=== PATIENT | female | born 1950 | race Native Hawaiian/Other Pacific Islander ===

== ENCOUNTER → 2023-09-26 | Outpatient (CLI) | payer MEDICARE, OTHER ==
[~2023-09-26] MED LIST: AMLO2.5T29 PO; ASPI-1444 PO; ATOR-2 PO; CARV12.530 PO; CLOP75TA60 PO; DULA4.5P SQ; EMPA25TA3 PO; FLUT16SP NASAL; INSLAN SQ; IOHEXOL 350 MG/ML 75 ML VIAL ONE; SODIUM CHLORIDE 0.9% 100 ML ONE
== END | disposition home or self-care (01) ==
LOC: RADMN 08:34
PROVIDERS: ATTEND Internal Medicine
DX: R91.8 Other nonspecific abnormal finding of lung field (principal); M47.814 Spondylosis without myelopathy or radiculopathy, thoracic region
CPT/HCPCS: 71260; Q9967; J7050

== ENCOUNTER → 2024-02-20 | Outpatient (CLI) | payer MEDICARE, OTHER ==
[~2024-02-20] MED LIST changes: -IOHEXOL 350 MG/ML 75 ML VIAL ONE; -SODIUM CHLORIDE 0.9% 100 ML ONE
== END | disposition home or self-care (01) ==
LOC: RADMN 09:39
PROVIDERS: ATTEND Internal Medicine Pulmonary Disease
DX: R91.8 Other nonspecific abnormal finding of lung field (principal); R07.9 Chest pain, unspecified
CPT/HCPCS: 71250

== ENCOUNTER → 2025-02-19 | Outpatient (CLI) | payer MEDICARE, OTHER ==
[~2025-02-19] MED LIST changes: -CLOP75TA60 PO; +CLOP75TA83 PO; +LOSA-417 PO; +SPIR-37 PO
== END | disposition home or self-care (01) ==
LOC: RADMN 12:55
PROVIDERS: ATTEND Internal Medicine Pulmonary Disease
DX: R91.8 Other nonspecific abnormal finding of lung field (principal); I51.7 Cardiomegaly; K80.20 Calculus of gallbladder without cholecystitis without obstruction
CPT/HCPCS: 71250

== ENCOUNTER 2025-04-03 15:26 | Inpatient (IN) | payer MEDICARE, OTHER ==
[~2025-04-03] VITALS: Ht 149.9 cm; Wt 62.1 kg
[2025-04-03 15:39] VITALS: PULSE 94; RESP 32; O2SAT 92
[2025-04-03 15:52] LABS: BASOPHILS % (AUTO) 0.2 % (0.0-2.0); EOSINOPHILS % (AUTO) 1.4 % (1.0-6.0); HEMATOCRIT 35.9 % (36-46); HEMOGLOBIN 11.6 g/dL (12.0-16.0); LYMPHOCYTES # (AUTO) 0.9 K/uL (1.0-4.8); LYMPHOCYTES % (AUTO) 7.2 % (22.0-44.0); MEAN CORPUSCULAR HEMOGLOBIN 29.5 pg (26.0-34.0); MEAN CORPUSCULAR HGB CONC 32.4 G/dL (31.0-37.0); MEAN CORPUSCULAR VOLUME 91 fL (80-100); MONOCYTES # (AUTO) 1.2 K/uL (0.1-1.0); MONOCYTES % (AUTO) 10.2 % (2.0-9.0); NEUTROPHILS # (AUTO) 9.6 K/uL (1.8-7.7); PLATELET COUNT (AUTO) 251 K/uL (150-450); RED BLOOD CELL COUNT(AUTO) 3.94 MIL/uL (4.00-5.20); RED CELL DISTRIBUTION WIDTH 14.5 % (11.5-14.5); WHITE BLOOD COUNT (AUTO) 11.8 K/uL (4.5-11.0)
[2025-04-03] MEDS: FUROSEMIDE 40 MG/4 ML VIAL IVP ONE (15:58)
[2025-04-03 16:14] LABS: MAGNESIUM 2.3 mg/dL (1.80-2.40)
[2025-04-03 16:18] LABS: ANION GAP 10 mmol/L (8-16); CALCIUM, TOTAL 8.5 mg/dL (8.8-10.5); CARBON DIOXIDE 23 mmol/L (22-29); CHLORIDE 106 mmol/L (98-107); CREATININE 1.01 mg/dL (0.60-1.30); GLOMERULAR FILTR. RATE CALC 53 mL/min (>60); GLUCOSE,RANDOM 143 mg/dL (70-110); POTASSIUM 3.5 mmol/L (3.5-5.1); SODIUM SERUM 139 mmol/L (136-145); UREA NITROGEN, BLOOD 22 mg/dL (7-18)
[2025-04-03 16:27] LABS: TROPONIN I-HIGH SENSITIVITY 26 ng/L (<51)
[2025-04-03] MEDS: BUMETANIDE 0.25 MG/ML 4 ML VIAL IVP ONE (16:56)
[2025-04-03] MEDS ORDERED: DEXTROSE 50%-WATER 25 GM/50 ML SYRINGE IVP PRN (17:00)
[2025-04-03] MEDS ORDERED: ONDANSETRON HCL 4 MG/2 ML VIAL IVP PRN (17:15)
[2025-04-03] MEDS ORDERED: ACETAMINOPHEN 325 MG TABLET PO PRN (17:15)
[2025-04-03 17:34] LABS: APPEARANCE,URINE CLEAR (CLEAR); BILIRUBIN,URINE NEGATIVE (NEGATIVE); COLOR,URINE COLORLESS (YELLOW); GLUCOSE, URINE (UA) >=1000 mg/dL (NEGATIVE); KETONES,URINE NEGATIVE (NEGATIVE); LEUKOCYTE ESTERASE ,URINE NEGATIVE (NEGATIVE); NITRATE,URINE NEGATIVE (NEGATIVE); OCCULT BLOOD,URINE NEGATIVE (NEGATIVE); PH,URINE 5.5 (5.0-8.0); PROTEIN,URINE TRACE mg/dL (NEGATIVE); SPECIFIC GRAVITIY, URINE 1.016 (1.003-1.030); UROBILINOGEN,URINE <=1.0 mg/dL (<=1.0)
[2025-04-03 18:45] LABS: GLUCOMETER DEV NAME(LOC) ERT.7; GLUCOSE,POINT OF CARE 51 MG/DL (70-110)
[2025-04-03 19:25] LABS: BACTERIA,URINE Rare /HPF (None Seen); RBC,URINE 0-2 /HPF (0-2); SQUAMOUS EPITHELIAL CELL,UR Rare /LPF (None Seen); WBC,URINE 0-2 /HPF (0-5)
[2025-04-03] MEDS: DOCUSATE SODIUM 100 MG CAPSULE PO SCH (21:00)
[2025-04-03] MEDS: ATORVASTATIN CALCIUM 40 MG TABLET PO SCH (22:00)
[2025-04-03] MEDS: TICAGRELOR 90 MG TABLET PO SCH (22:00)
[2025-04-03] MEDS: FAMOTIDINE 20 MG TABLET PO SCH (22:00)
[2025-04-03] MEDS: HEPARIN SODIUM,PORCINE 5,000 UNITS/ML VIAL SQ SCH (23:18)
[2025-04-04 07:07] LABS: ANION GAP 7 mmol/L (8-16); CALCIUM, TOTAL 9.3 mg/dL (8.8-10.5); CARBON DIOXIDE 30 mmol/L (22-29); CHLORIDE 104 mmol/L (98-107); CREATININE 0.87 mg/dL (0.60-1.30); GLOMERULAR FILTR. RATE CALC > 60 mL/min (>60); GLUCOSE,RANDOM 94 mg/dL (70-110); POTASSIUM 3.3 mmol/L (3.5-5.1); SODIUM SERUM 141 mmol/L (136-145); TROPONIN I-HIGH SENSITIVITY 49 ng/L (<51); UREA NITROGEN, BLOOD 21 mg/dL (7-18)
[2025-04-04 07:15] LABS: BASOPHILS % (AUTO) 0.3 % (0.0-2.0); EOSINOPHILS % (AUTO) 1.8 % (1.0-6.0); HEMATOCRIT 40.6 % (36-46); HEMOGLOBIN 13.6 g/dL (12.0-16.0); LYMPHOCYTES # (AUTO) 1.2 K/uL (1.0-4.8); MEAN CORPUSCULAR HEMOGLOBIN 30.1 pg (26.0-34.0); MEAN CORPUSCULAR HGB CONC 33.5 G/dL (31.0-37.0); MEAN CORPUSCULAR VOLUME 90 fL (80-100); MONOCYTES # (AUTO) 1.5 K/uL (0.1-1.0); MONOCYTES % (AUTO) 12.3 % (2.0-9.0); NEUTROPHILS % (AUTO) 75.6 % (40.0-70.0); PLATELET COUNT (AUTO) 311 K/uL (150-450); RED BLOOD CELL COUNT(AUTO) 4.53 MIL/uL (4.00-5.20); RED CELL DISTRIBUTION WIDTH 14.3 % (11.5-14.5)
[2025-04-04] MEDS: BUMETANIDE 0.25 MG/ML 4 ML VIAL IVP SCH (08:37)
[2025-04-04] MEDS: ASPIRIN 81 MG CHEWABLE TABLET PO SCH (08:38)
[2025-04-04] MEDS: INSULIN LISPRO 100 UNITS/ML SQ PRN (11:58)
[2025-04-04] MEDS ORDERED: POTASSIUM CHL 10 MEQ/WATER 50 ML IV PRN (12:45)
[2025-04-04] MEDS: carvediloL 6.25 MG TABLET PO SCH (14:06)
[2025-04-04 20:35] VITALS: BP 139/60; PULSE 79; RESP 18; TEMP 98.2; O2SAT 97
[2025-04-04] MEDS: POTASSIUM CHLORIDE 20 MEQ ER TABLET PO PRN (21:20)
[2025-04-04 21:26] LABS: GLUCOMETER DEV NAME(LOC) 5S.1D; GLUCOSE,POINT OF CARE 241 MG/DL (70-110)
[2025-04-05 00:03] VITALS: BP 120/61; PULSE 79; RESP 18; TEMP 98.2; O2SAT 97
[2025-04-05 04:27] VITALS: BP 136/70; PULSE 78; RESP 18; TEMP 98.4; O2SAT 97
[2025-04-05 06:26] LABS: GLUCOMETER DEV NAME(LOC) 5N.2C; GLUCOSE,POINT OF CARE 92 MG/DL (70-110)
[2025-04-05 06:53] LABS: BASOPHILS % (AUTO) 0.2 % (0.0-2.0); EOSINOPHILS % (AUTO) 2.5 % (1.0-6.0); HEMATOCRIT 37.6 % (36-46); HEMOGLOBIN 12.5 g/dL (12.0-16.0); LYMPHOCYTES # (AUTO) 1.3 K/uL (1.0-4.8); LYMPHOCYTES % (AUTO) 14.7 % (22.0-44.0); MEAN CORPUSCULAR HEMOGLOBIN 29.7 pg (26.0-34.0); MEAN CORPUSCULAR HGB CONC 33.3 G/dL (31.0-37.0); MEAN CORPUSCULAR VOLUME 89 fL (80-100); MONOCYTES # (AUTO) 1.2 K/uL (0.1-1.0); NEUTROPHILS # (AUTO) 6.3 K/uL (1.8-7.7); NEUTROPHILS % (AUTO) 69.6 % (40.0-70.0); PLATELET COUNT (AUTO) 344 K/uL (150-450); RED BLOOD CELL COUNT(AUTO) 4.21 MIL/uL (4.00-5.20); RED CELL DISTRIBUTION WIDTH 14.3 % (11.5-14.5); WHITE BLOOD COUNT (AUTO) 9.1 K/uL (4.5-11.0)
[2025-04-05 07:12] LABS: ANION GAP 9 mmol/L (8-16); CALCIUM, TOTAL 9.7 mg/dL (8.8-10.5); CARBON DIOXIDE 28 mmol/L (22-29); CHLORIDE 103 mmol/L (98-107); CREATININE 0.85 mg/dL (0.60-1.30); GLOMERULAR FILTR. RATE CALC > 60 mL/min (>60); GLUCOSE,RANDOM 84 mg/dL (70-110); POTASSIUM 4.1 mmol/L (3.5-5.1); SODIUM SERUM 140 mmol/L (136-145); UREA NITROGEN, BLOOD 28 mg/dL (7-18)
[2025-04-05 08:19] VITALS: BP 125/63; PULSE 76; RESP 18; TEMP 98.4; O2SAT 98
[2025-04-05 10:56] LABS: GLUCOMETER DEV NAME(LOC) 5S.1D; GLUCOSE,POINT OF CARE 109 MG/DL (70-110)
[2025-04-05 11:27] VITALS: BP 115/56; PULSE 75; RESP 18; TEMP 98.1; O2SAT 97
[2025-04-05] MEDS: INSULIN GLARGINE,HUM.REC.ANLOG 100 UNITS/ML SQ SCH (11:42)
[2025-04-05 15:30] VITALS: BP 124/66; PULSE 81; RESP 18; TEMP 98.2; O2SAT 97
[2025-04-05 20:00] VITALS: BP 119/59; PULSE 72; RESP 19; TEMP 98.2; O2SAT 94
[2025-04-06 00:07] VITALS: BP 110/54; PULSE 75; RESP 18; TEMP 97.9; O2SAT 96
[2025-04-06 03:30] VITALS: BP 107/57; PULSE 69; RESP 17; TEMP 98.7; O2SAT 96
[2025-04-06 05:41] LABS: GLUCOMETER DEV NAME(LOC) 5S.2D; GLUCOSE,POINT OF CARE 340 MG/DL (70-110)
[2025-04-06 05:41] LABS: GLUCOMETER DEV NAME(LOC) 5S.2D; GLUCOSE,POINT OF CARE 245 MG/DL (70-110)
[2025-04-06 07:46] VITALS: BP 124/62; PULSE 74; RESP 18; TEMP 98.4; O2SAT 98
[2025-04-06 08:11] LABS: GLUCOMETER DEV NAME(LOC) 5S.1D; GLUCOSE,POINT OF CARE 155 MG/DL (70-110)
[2025-04-06 08:11] LABS: GLUCOMETER DEV NAME(LOC) 5S.1D; GLUCOSE,POINT OF CARE 339 MG/DL (70-110)
[2025-04-06 08:11] LABS: GLUCOMETER DEV NAME(LOC) 5S.2D; GLUCOSE,POINT OF CARE 177 MG/DL (70-110)
[2025-04-06] MEDS ORDERED: BUME1TAB50 PO (09:28)
[2025-04-06 11:55] VITALS: BP 132/63; PULSE 76; RESP 15; TEMP 98.4; O2SAT 98
[2025-04-06 12:11] LABS: GLUCOMETER DEV NAME(LOC) 5S.1D; GLUCOSE,POINT OF CARE 374 MG/DL (70-110)
== END 2025-04-06 15:25 | disposition home or self-care (01) | DRG 280 ==
LOC: EMS 15:26 → EDH 17:02 → 5S 04-04 20:18
PROVIDERS: ADMIT Internal Medicine; ATTEND Internal Medicine
PROC: 5A09357 Assistance with Respiratory Ventilation, Less than 24 Consecutive Hours, Continuous Positive Airway Pressure (ICD-10-PCS; principal; 2025-04-03)
DX: I11.0 Hypertensive heart disease with heart failure (principal); I50.23 Acute on chronic systolic (congestive) heart failure; I21.19 ST elevation (STEMI) myocardial infarction involving other coronary artery of inferior wall; J96.01 Acute respiratory failure with hypoxia; I25.10 Atherosclerotic heart disease of native coronary artery without angina pectoris; E11.9 Type 2 diabetes mellitus without complications; I34.0 Nonrheumatic mitral (valve) insufficiency; I25.5 Ischemic cardiomyopathy; E78.00 Pure hypercholesterolemia, unspecified; M81.0 Age-related osteoporosis without current pathological fracture; Z86.73 Personal history of transient ischemic attack (TIA), and cerebral infarction without residual deficits; Z79.4 Long term (current) use of insulin; Z95.5 Presence of coronary angioplasty implant and graft; Z88.8 Allergy status to other drugs, medicaments and biological substances; Z79.899 Other long term (current) drug therapy; Z79.02 Long term (current) use of antithrombotics/antiplatelets
CPT/HCPCS: 71045; 80048; 81001; 82962; 83735; 83880; 84484; 85025; 93005; 93306; 94660; 96374; 96375; 97116; 97162; 97166; 97535; 99291; G0378; J1644; J1815; J1940; J3490; 36415-L1; 36415-TC

== ENCOUNTER 2025-05-09 20:30 | Emergency (ER) | payer MEDICARE, OTHER ==
[~2025-05-09] VITALS: Ht 151.1 cm; Wt 58.2 kg
[~2025-05-09 20:30] MED LIST changes: -AMLO2.5T29 PO; +BUME1TAB50 PO; -FLUT16SP NASAL; -INSLAN SQ; -LOSA-417 PO; -SPIR-37 PO
[2025-05-09 21:10] LABS: GLUCOMETER DEV NAME(LOC) ER.7; GLUCOSE,POINT OF CARE 238 MG/DL (70-110)
[2025-05-09 21:21] LABS: PLATELET COUNT (AUTO) 254 K/uL (150-450); RED BLOOD CELL COUNT(AUTO) 4.79 MIL/uL (4.00-5.20); RED CELL DISTRIBUTION WIDTH 14.7 % (11.5-14.5); WHITE BLOOD COUNT (AUTO) 9.4 K/uL (4.5-11.0)
[2025-05-09 21:30] LABS: CALCIUM, TOTAL 9.3 mg/dL (8.8-10.5); CREATININE 1.31 mg/dL (0.60-1.30); GLOMERULAR FILTR. RATE CALC 39 mL/min (>60); GLUCOSE,RANDOM 246 mg/dL (70-110); SODIUM SERUM 139 mmol/L (136-145); UREA NITROGEN, BLOOD 37 mg/dL (7-18)
[2025-05-09 21:34] LABS: ASPARTATE AMINOTRANSFERASE 20.0 U/L (15-37); TOTAL PROTEIN, SERUM 8.0 g/dL (6.4-8.2)
[2025-05-09 21:36] LABS: TROPONIN I-HIGH SENSITIVITY 31 ng/L (<51)
[2025-05-10 00:41] VITALS: TEMP 98.3
[2025-05-10] MEDS ORDERED: METH-659 PO (01:41)
[2025-05-10 02:21] VITALS: BP 133/65; PULSE 68; RESP 16; O2SAT 100
== END 2025-05-10 02:24 | disposition home or self-care (01) ==
LOC: EMS 20:31
DX: S29.012A Strain of muscle and tendon of back wall of thorax, initial encounter (principal); M62.830 Muscle spasm of back; E11.9 Type 2 diabetes mellitus without complications; E78.00 Pure hypercholesterolemia, unspecified; I10 Essential (primary) hypertension; I25.10 Atherosclerotic heart disease of native coronary artery without angina pectoris; M81.0 Age-related osteoporosis without current pathological fracture; Z98.51 Tubal ligation status; Z86.73 Personal history of transient ischemic attack (TIA), and cerebral infarction without residual deficits; Z79.82 Long term (current) use of aspirin; Z79.02 Long term (current) use of antithrombotics/antiplatelets; Z79.899 Other long term (current) drug therapy; W01.0XXA Fall on same level from slipping, tripping and stumbling without subsequent striking against object, initial encounter; Y93.89 Activity, other specified; Y92.89 Other specified places as the place of occurrence of the external cause; Y99.8 Other external cause status
CPT/HCPCS: 71101; 80048; 80076; 82962; 83880; 84484; 85025; 93005; 99285